=== PATIENT | male | born 1955 | race Caucasian/White ===

== ENCOUNTER → 2018-05-26 | Day surgery (SDC) | payer OTHER ==
[~2018-05-26] MED LIST: FENTANYL CITRATE/PF 100MCG/2 ML INJ ONE; HYOSCYAMINE SULFATE 0.5 MG/ML AMP ONE; LIDOCAINE HCL 2% LOCAL INJ 5 ML SDV VIAL INJ ONE; LIPITOR20 MG PO; LOPID600 MG PO; LOTREL 10-20 M1 EACH PO; MIDAZOLAM HCL 2 MG/2 ML VIAL ONE; PROPOFOL IV EMULSION 10 MG/ML 50 ML VIAL ONE; SINGULAIR10 MG PO; VIT D PO
--- NOTE | 2018-05-26 12:47 | Operative Report ---
DATE OF PROCEDURE: May 26, 2018 REFERRING PHYSICIAN: Dr. Alisha Dwyer PROCEDURE PERFORMED: Colonoscopy and polypectomy. INDICATIONS FOR PROCEDURE: Colorectal cancer screening. Personal history of colon polyps, loose stools. MEDICATION: Patient was done under MAC. Please see anesthesiologist's note. PROCEDURE: With the patient in the left lateral decubitus position, the flexible fiberoptic Olympus colonoscope was inserted into the rectum with ease and advanced all the way to the cecum. An approximately 5-mm sessile polyp was snared from the cecum. The ileocecal valve was intubated, and the scope was advanced into the terminal ileum. Biopsies were obtained. The scope was then withdrawn back into the colon. Of note there were mild, patchy, inflammatory changes noted throughout the colon, and random biopsies were obtained. One polyp was snared and 2 polyps were hot biopsied from the ascending colon. Two polyps were hot biopsied from the descending colon. Five polyps were hot biopsied from the sigmoid colon. The scope was then retroflexed into the distal rectum, and small internal hemorrhoids were noted, none of which was actively bleeding. The scope was then straightened out. It was subsequently withdrawn after securing an adequate stool specimen that was sent for the appropriate stool studies. Patient tolerated the procedure well. IMPRESSION 1. Patchy mild colitis, random biopsies obtained. 2. Cecal polyp, snared. 3. Ascending colon polyps times 3, two hot biopsied and one snared. 4. Descending colon polyps times 2, hot biopsied. 5. Sigmoid colon polyps times 5, hot biopsied. 6. Internal hemorrhoids, none actively bleeding. PLAN: Follow up histology. Follow up stool studies. Initiate VSL #3 one p.o. daily and Bentyl 10 mg 1 p.o. t.i.d. Patient will need a followup colonoscopy in 3 years. Job#: [id number] cc:ALISHA DWYER DO
[2018-05-26 12:48] LABS: WBC,FECAL (FECAL LACTOFERRIN) NEGATIVE (NEGATIVE)
[2018-05-27 14:51] LABS: C DIFFICILE TOXIN A&B AMP PROB NEGATIVE (NEGATIVE)
== END | disposition home or self-care (01) ==
LOC: OR 08:28
PROVIDERS: ATTEND Internal Medicine Gastroenterology
DX: K52.9 Noninfective gastroenteritis and colitis, unspecified (principal); D12.2 Benign neoplasm of ascending colon; D12.4 Benign neoplasm of descending colon; K64.8 Other hemorrhoids; E78.5 Hyperlipidemia, unspecified; I10 Essential (primary) hypertension; E11.9 Type 2 diabetes mellitus without complications; M19.90 Unspecified osteoarthritis, unspecified site; H91.90 Unspecified hearing loss, unspecified ear; Z01.810 Encounter for preprocedural cardiovascular examination; Z68.31 Body mass index [BMI] 31.0-31.9, adult; Z96.649 Presence of unspecified artificial hip joint
CPT/HCPCS: 45380; 45384; 45385; 83630; 83993; 87045; 87177; 87328; 87493; 93005; J1980; J2001; J2250